=== PATIENT | female | born 1950 | race Caucasian/White ===

== ENCOUNTER 2017-05-22 15:21 | Emergency (ER) | payer BC, MEDICARE ==
--- NOTE | 2017-05-22 16:34 | RAD ---
EXAM DESCRIPTION: Shoulder,Right 2 or More Views CLINICAL HISTORY: 66 years Female fall with pain in prox humerus and shoulder COMPARISON: None. TECHNIQUE: RIGHT shoulder three view FINDINGS: Severely comminuted fracture of the right humeral head and neck with impaction of the distal fracture fragment Moderate degenerative change at the AC joint Inferior margin the bony glenoid appears slightly irregular which may reflect degenerative change. Possibility of bony glenoid fracture not excluded. Acromioclavicular joint appears maintained. IMPRESSION: Comminuted impacted fracture of the proximal right humerus involving the head and neck Irregularity of the inferior aspect of the glenoid which may be related to degenerative change. Fracture not excluded. Electronically signed by: Rosina Wong MD 05/22/2017 4:31 PM CDT
[2017-05-22] MEDS ORDERED: HYDROcodone 7.5MG/APAP 325MG 1 EA TAB PO ONE (16:36)
--- NOTE | 2017-05-22 16:54 | RAD ---
EXAM DESCRIPTION: Humerus, right CLINICAL HISTORY: 66 years Female fall with pain in prox humerus and shoulder COMPARISON: None. TECHNIQUE: Two views of the right humerus. FINDINGS: There are comminuted impacted fractures of the proximal right humerus involving the head and neck. The shaft of the humerus otherwise appears intact. IMPRESSION: Proximal right humerus fractures involving the head and neck. The shaft of the humerus otherwise appears intact. Electronically signed by: Fred Wong MD 05/22/2017 4:52 PM CDT
--- NOTE | 2017-05-22 17:13 | ED.PDOC ---
History of Present Illness - General Chief Complaint: Upper Extremity Injury Stated Complaint: Fall with right shoulder pain Time Seen by Provider: 05/22/17 15:28 Source: patient Exam Limitations: no limitations - History of Present Illness Initial Comments: The patient's 66-year-old female who tripped and fell and sustained an injury to her right shoulder just prior to arrival. She has pain with any movement and with palpation. There is no laceration. There is no bruising yet. No pain over the clavicle or the scapula. No neck pain. No other injuries. She does appear to be neurovascularly at her baseline. She moves the elbow and the hand well. Timing/Duration: 1 hour Severity: moderate Improving Factors: immobilization Worsening Factors: movement Associated Symptoms: denies symptoms Allergies/Adverse Reactions: Allergies Erythromycin Allergy (Verified 05/22/17 15:28) Penicillins Allergy (Verified 05/22/17 15:28) Home Medications: Ambulatory Orders Dqxogluqpajqb-Qxcn-[id number] [Fioricet] 1 ea PO Q6HR PRN #60 tab 05/22/17 Amlodipine Besylate [Amlodipine Besylate] 5 mg PO DAILY 05/22/17 Ascorbic Acid [Vitamin C] 500 mg PO DAILY 05/22/17 B-Complex W/Biotin & Folic Aci [Super B-Complex] 1 tab PO DAILY 05/22/17 Cholecalciferol [Vitamin D] 5,000 unit PO DAILY 05/22/17 Duloxetine HCl [Duloxetine HCl] 60 mg PO DAILY 05/22/17 Fenoprofen Calcium 400 mg PO BID 05/22/17 Insulin 70/30 (Human) [Novolin 70/30] 30 units PO BID 05/22/17 Ipratropium Brom 0.03% Nasal [Atrovent Nasal [place] 0.03%] 2 spray BNAS QID 05/22 Linaclotide [Linzess] 145 mcg PO DAILYBK 05/22/17 Pregabalin [Lyrica] 50 mg PO BID 05/22/17 Ramipril [Ramipril] 10 mg PO BID 05/22/17 Lion 1 mg PO DAILY 05/22/17 Tizanidine HCl [Zanaflex] 2 mg PO DAILY 05/22/17 traMADol 37.5MG/APAP 325MG [Ultracet] 2 ea PO TID PRN 05/22/17 Review of Systems - Review of Systems Constitutional: States: no symptoms reported EENTM: States: no symptoms reported Respiratory: States: no symptoms reported Cardiology: States: no symptoms reported Gastrointestinal/Abdominal: States: no symptoms reported Genitourinary: States: no symptoms reported Musculoskeletal: States: see HPI Skin: States: no symptoms reported Neurological: States: no symptoms reported Endocrine: States: no symptoms reported All other Systems: No Change from Baseline Past Medical History (General) - Patient Medical History Hx Stroke: No Hx Dementia: No Hx Asthma: No Hx of COPD: No Hx Cardiac Disorders: No Hx Congestive Heart Failure: No Hx Hypertension: Yes Hx Diabetes: Yes Surgical History: cholecystectomy, Hysterectomy, other - Vaccination History Hx Tetanus, Diphtheria Vaccination: Yes Hx Influenza Vaccination: Yes Hx Pneumococcal Vaccination: No Family Medical History - Family History Father Hx Cardiac Disease: Yes - [place] Physical Exam - Physical Exam General Appearance: Alert, No apparent distress, Obvious distress Eye Exam: bilateral normal Ears, Nose, Throat: hearing grossly normal, normal ENT inspection Neck: full range of motion, supple Respiratory: no respiratory distress, no accessory muscle use Cardiovascular/Chest: normal peripheral pulses, no edema Peripheral Pulses: radial,right: 2+, radial,left: 2+ Gastrointestinal/Abdominal: other - obese Rectal Exam: deferred Extremity: no pedal edema, no calf tenderness, normal capillary refill, other - ee history of present illness. 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 She has a closed impacted comminuted fracture of the proximal humerus. The patient will be placed in a shoulder immobilizer. She needs to follow up with orthopedics in the coming week to see if she is going to require a repair. The patient will be written for Fioricet for as needed use for some pain control. ER warnings were given for any worsening. Avoid future falls. Departure - Departure Clinical Impression: Proximal humerus fracture Qualifiers: Encounter type: initial encounter Fracture type: closed Fracture morphology: other fracture Fracture alignment: nondisplaced Laterality: right Qualified Code (s): S42.294A - Other nondisplaced fracture of upper end of right humerus, initial encounter for closed fracture Disposition: Discharge to Home or Self Care Condition: Fair Departure Forms: ED Discharge - Pt. Copy, Patient Portal Self Enrollment Diet: regular diet Activity: no pushing/pulling with affected limb Referrals: THOM CRANE [Primary Care Provider] - 1-2 Weeks Prescriptions: Jefbqcjtqfshy-Dtrp-Wukvsdpqqm [Fioricet] 1 ea PO Q6HR PRN #60 tab PRN Reason: Pain Home Medications: Ambulatory Orders Xdzraayjshoja-Jbyv-Cfevpozuhz [Fioricet] 1 ea PO Q6HR PRN #60 tab 05/22/17 Amlodipine Besylate [Amlodipine Besylate] 5 mg PO DAILY 05/22/17 Ascorbic Acid [Vitamin C] 500 mg PO DAILY 05/22/17 B-Complex W/Biotin & Folic Aci [Super B-Complex] 1 tab PO DAILY 05/22/17 Cholecalciferol [Vitamin D] 5,000 unit PO DAILY 05/22/17 Duloxetine HCl [Duloxetine HCl] 60 mg PO DAILY 05/22/17 Fenoprofen Calcium 400 mg PO BID 05/22/17 Insulin 70/30 (Human) [Novolin 70/30] 30 units PO BID 05/22/17 Ipratropium Brom 0.03% Nasal [Atrovent Nasal [place] 0.03%] 2 spray BNAS QID 05/22 Linaclotide [Linzess] 145 mcg PO DAILYBK 05/22/17 Pregabalin [Lyrica] 50 mg PO BID 05/22/17 Ramipril [Ramipril] 10 mg PO BID 05/22/17 Lion 1 mg PO DAILY 05/22/17 Tizanidine HCl [Zanaflex] 2 mg PO DAILY 05/22/17 traMADol 37.5MG/APAP 325MG [Ultracet] 2 ea PO TID PRN 05/22/17 Additional Instructions: the patient's 6-year-old female presenting to the emergency room after a fall with right shoulder pain. She has a closed impacted comminuted fracture of the proximal humerus. The patient will be placed in a shoulder immobilizer. She needs to follow up with orthopedics in the coming week to see if she is going to require a repair. The patient will be written for Fioricet for as needed use for some pain control. ER warnings were given for any worsening. Avoid future falls.
[2017-05-22 17:49] VITALS: BP 139/74; TEMP 98.2; O2SAT 96
== END 2017-05-22 17:31 | disposition home or self-care (01) ==
LOC: ER 15:21
DX: S42.294A Other nondisplaced fracture of upper end of right humerus, initial encounter for closed fracture (principal); I10 Essential (primary) hypertension; E11.9 Type 2 diabetes mellitus without complications; Z79.4 Long term (current) use of insulin; W19.XXXA Unspecified fall, initial encounter